=== PATIENT | male | born 1935 | race Hispanic/Latino ===

== ENCOUNTER 2020-12-09 11:42 | Observation (INO) | payer MEDICARE ==
[~2020-12-09] VITALS: Ht 172.7 cm; Wt 98.9 kg
[2020-12-09] VITALS (7 sets, daily range): BP systolic 110–123; BP diastolic 54–66
[2020-12-09] MEDS: 0.9%NACL 1000ML 1,000 ML IV SCH (13:05)
[2020-12-09 13:10] LABS: BASOPHILS % (AUTO) 0.9 % (0.0-5.0); EOSINOPHILS % (AUTO) 6.7 % (0.0-8.0); HEMATOCRIT 36.8 % (42-54); LYMPHOCYTES % (AUTO) 16.8 % (21.0-51.0); MEAN CORPUSCULAR HEMOGLOBIN 31.1 pg (27.0-33.0); MEAN CORPUSCULAR HGB CONC 32.9 g/dL (32.0-36.0); MEAN CORPUSCULAR VOLUME 94.6 fL (79-99); MONOCYTES % (AUTO) 9.1 % (3.0-13.0); NEUTROPHILS % (AUTO) 65.9 % (40.0-77.0); PLATELET COUNT (AUTO) 165 K/uL (130-400); RED BLOOD CELL COUNT(AUTO) 3.89 MIL/uL (4.50-6.20); WHITE BLOOD COUNT (AUTO) 4.6 K/uL (4.8-10.8)
[2020-12-09 13:20] LABS: CREATININE 1.6 mg/dL (0.5-1.5); POTASSIUM 4.6 mmol/L (3.5-5.1)
[2020-12-09 13:22] LABS: ALBUMIN 2.8 g/dL (3.5-5.0); BILIRUBIN,TOTAL 1.1 mg/dL (0.2-1.0); CRP QUANTITATIVE 20.1 mg/L (0.00-9.0); TOTAL PROTEIN, SERUM 7.2 g/dL (6.0-8.3)
[2020-12-09 13:38] LABS: B-TYPE NATRIURETIC PEPTIDE 51 pg/mL (0-100)
[2020-12-09 15:10] LABS: APPEARANCE,URINE Cloudy (CLEAR); BILIRUBIN,URINE Negative (NEGATIVE); COLOR,URINE Yellow (YELLOW); GLUCOSE, URINE (UA) Negative (NEGATIVE); KETONES,URINE Negative (NEGATIVE); LEUKOCYTE ESTERASE ,URINE Large (NEGATIVE); NITRATE,URINE Positive (NEGATIVE); OCCULT BLOOD,URINE Negative (NEGATIVE); PH,URINE 6.5 (5.0-8.0); PROTEIN,URINE Negative (NEGATIVE)
[2020-12-09 15:17] LABS: BACTERIA,URINE Few /HPF (None Seen); RBC,URINE 0-1 /HPF (0-1); WBC,URINE 26-50 /HPF (0-1)
[2020-12-09 15:18] LABS: SQUAMOUS EPITHELIAL CELL,UR Rare /HPF (0-2)
[2020-12-09] MEDS ORDERED: ACETAMINOPHEN 325 MG TAB PO PRN ×2 (15:30)
[2020-12-09] MEDS ORDERED: 0.9%NACL 1000ML 1,000 ML IV SCH (15:30)
[2020-12-09] MEDS ORDERED: LACTULOSE 20 GM/30 ML UDCUP PO PRN (15:30)
[2020-12-09] MEDS ORDERED: ONDANSETRON 4MG INJ IV PRN (15:30)
[2020-12-09] MEDS ORDERED: NITROGLYCERIN 0.4 MG SL TAB SL PRN (15:30)
[2020-12-09] MEDS ORDERED: CEFTRIAXONE 1G VIAL IVP ONE (15:30)
[2020-12-09] MEDS ORDERED: FAMOTIDINE 20MG VIAL IV SCH (15:45)
[2020-12-09 15:49] LABS: % IRON SATURATION 27.4 % (30-44)
[2020-12-09] MEDS ORDERED: 0.9%NACL 50ML 50 ML IV ONE (15:52)
[2020-12-09] MEDS ORDERED: PEG 3350/NA SULF,BICARB,CL/KCL 4000 ML SOLN PO SCH (17:10)
[2020-12-09] MEDS ORDERED: GLIP10TA3 PO (17:20)
[2020-12-09] MEDS ORDERED: PANT40GR PO (17:20)
[2020-12-09] MEDS ORDERED: FURO40TA5 PO (17:20)
[2020-12-09] MEDS ORDERED: INSLAN SQ (17:20)
[2020-12-09] MEDS ORDERED: PROP20TA7 PO (17:20)
[2020-12-09] MEDS ORDERED: CHOL200013 PO (17:20)
[2020-12-09] MEDS ORDERED: FERR-82 PO (17:20)
[2020-12-09] MEDS ORDERED: SPIR100T5 PO (17:20)
[2020-12-09] MEDS ORDERED: FISH12002 PO (17:20)
[2020-12-10] VITALS (16 sets, daily range): BP systolic 89–115; BP diastolic 44–89
[2020-12-10] MEDS: 0.9%NACL 1000ML 1,000 ML IV SCH ×2 (06:22→06:27)
[2020-12-10 08:01] LABS: BASOPHILS % (AUTO) 0.8 % (0.0-5.0); EOSINOPHILS % (AUTO) 4.7 % (0.0-8.0); HEMATOCRIT 34.5 % (42-54); LYMPHOCYTES % (AUTO) 11.6 % (21.0-51.0); MEAN CORPUSCULAR HEMOGLOBIN 31.4 pg (27.0-33.0); MEAN CORPUSCULAR HGB CONC 32.2 g/dL (32.0-36.0); MEAN CORPUSCULAR VOLUME 97.5 fL (79-99); MONOCYTES % (AUTO) 9.9 % (3.0-13.0); NEUTROPHILS % (AUTO) 72.4 % (40.0-77.0); PLATELET COUNT (AUTO) 125 K/uL (130-400); RED BLOOD CELL COUNT(AUTO) 3.54 MIL/uL (4.50-6.20); RED CELL DISTRIBUTION WIDTH 15.1 % (11.0-15.5); WHITE BLOOD COUNT (AUTO) 3.6 K/uL (4.8-10.8)
[2020-12-10 08:10] LABS: CREATININE 1.5 mg/dL (0.5-1.5); POTASSIUM 4.2 mmol/L (3.5-5.1)
[2020-12-10] MEDS ORDERED: 0.9%NACL 50ML IV SCH (08:30)
[2020-12-10] MEDS ORDERED: OCTREOTIDE ACETATE 1,250 MCG in 0.9% NACL 250ML 250 ML IV SCH (08:30)
[2020-12-10] MEDS ORDERED: ZOSYN 3.375GM+NS 50ML 50 ML IV SCH (08:30)
[2020-12-10] MEDS ORDERED: PIP/TAZ ZOSYN 3.375G 3.375 GM VIAL IVPB SCH (08:30)
[2020-12-10] MEDS ORDERED: SPIRONOLACTONE 25 MG TAB PO SCH (09:00)
[2020-12-10] MEDS ORDERED: LACTULOSE 20 GM/30 ML UDCUP PO SCH (09:00)
[2020-12-10] MEDS ORDERED: FUROSEMIDE 40 MG TABLET PO SCH (09:00)
[2020-12-10] MEDS ORDERED: PANTOPRAZOLE 40 MG/VIAL IVP SCH (09:00)
[2020-12-10] MEDS ORDERED: FERROUS SULFATE 325 MG TABLET.DR PO SCH (09:00)
[2020-12-10 09:01] LABS: INR 1.05 (0.85-1.15); PROTHROMBIN TIME 11.4 SEC (9.6-11.6)
[2020-12-10 09:02] LABS: PARTIAL THROMBOPLASTIN TIME 28.4 SEC (26.3-35.5)
[2020-12-10 09:46] LABS: CHOLESTEROL 157 mg/dL (<200); HDL CHOLESTEROL 41 mg/dL (29-71); LDL DIRECT 87 mg/dL (0-99); TRIGLYCERIDES 127 mg/dL (30-200)
[2020-12-10] MEDS ORDERED: PROPOFOL 10 MG/ML 20ML VIAL IV ONE (11:22)
[2020-12-10] MEDS ORDERED: INSULIN HUMULIN R 100 UNIT/ML 3ML SQ SCH (11:30)
[2020-12-10 13:32] LABS: HEMOGLOBIN A1C 7.5 % (4.0-6.0)
[2020-12-10] MEDS ORDERED: CEPH500B PO (14:14)
== END 2020-12-10 17:00 | disposition home or self-care (01) ==
LOC: EDH 11:42 → EDHIP 15:14 → 3DH 23:38
PROVIDERS: ADMIT Internal Medicine; ATTEND Internal Medicine
DX: D50.0 Iron deficiency anemia secondary to blood loss (chronic) (principal); Z20.822 Contact with and (suspected) exposure to COVID-19; K92.2 Gastrointestinal hemorrhage, unspecified; E11.9 Type 2 diabetes mellitus without complications; K70.31 Alcoholic cirrhosis of liver with ascites; I25.10 Atherosclerotic heart disease of native coronary artery without angina pectoris; I73.9 Peripheral vascular disease, unspecified; K46.9 Unspecified abdominal hernia without obstruction or gangrene; E78.5 Hyperlipidemia, unspecified; K64.8 Other hemorrhoids; K63.5 Polyp of colon; N39.0 Urinary tract infection, site not specified; Z79.4 Long term (current) use of insulin
CPT/HCPCS: 36415 ×2; 43235; 45378; 71045; 74176; 80048; 80053; 80061; 81001; 82140; 82270; 82948 ×4; 83036; 83540; 83550; 83880; 84145; 84484; 85025 ×2; 85610; 85651; 85730; 86140; 87077; 87088; 87186; 87635; 93005; 96361 ×2; 96374; 96375; 97039; 97161; 99285; A4215 ×2; A4221; A4222; A4223; A4606; A4620; A4657; G0378 ×24; G8979; G8980; G8981; G8982; G8983; J0696; J2354; J2704; J3490 ×2; J7030 ×4; J7050; J2543

== ENCOUNTER 2021-01-14 06:52 | Day surgery (SDC) | payer MEDICARE ==
[2021-01-14] VITALS (7 sets, daily range): BP systolic 107–136; BP diastolic 52–67
[~2021-01-14] VITALS: Ht 172.7 cm; Wt 97.5 kg
[~2021-01-14 06:52] MED LIST: 0.9%NACL 1000ML 1,000 ML IV ONE; CHOL200013 PO; FERR-82 PO; FISH12002 PO; FURO40TA5 PO; GLIP10TA3 PO; INSLAN SQ; PANT40GR PO; PROP20TA7 PO; SPIR100T5 PO
[2021-01-14] MEDS ORDERED: PROPOFOL 10 MG/ML 20ML VIAL IV ONE ×2 (08:51)
[2021-01-14] MEDS ORDERED: PHENYLEPHRINE HCL 10 MG/ML 1ML VIAL IV ONE (09:00)
[2021-01-14] MEDS ORDERED: 0.9%NACL 10ML VIAL ONE (09:00)
[2021-01-14] MEDS ORDERED: EPINEPHRINE PF 1MG AMP ONE (09:02)
== END 2021-01-14 10:15 | disposition home or self-care (01) ==
LOC: ENDO 06:52 → DAH 06:52 → ENDO 10:15
PROVIDERS: ATTEND Internal Medicine Gastroenterology
DX: K92.1 Melena (principal); D12.2 Benign neoplasm of ascending colon; K29.50 Unspecified chronic gastritis without bleeding; K31.89 Other diseases of stomach and duodenum; I85.00 Esophageal varices without bleeding; K55.20 Angiodysplasia of colon without hemorrhage; K64.1 Second degree hemorrhoids; K31.7 Polyp of stomach and duodenum; D50.9 Iron deficiency anemia, unspecified; K57.10 Diverticulosis of small intestine without perforation or abscess without bleeding; J45.909 Unspecified asthma, uncomplicated; I25.10 Atherosclerotic heart disease of native coronary artery without angina pectoris; K21.9 Gastro-esophageal reflux disease without esophagitis; E11.9 Type 2 diabetes mellitus without complications; Z90.49 Acquired absence of other specified parts of digestive tract; Z98.890 Other specified postprocedural states; Z79.899 Other long term (current) drug therapy; Z20.822 Contact with and (suspected) exposure to COVID-19
CPT/HCPCS: 43239; 43255; 45380; 45385; 82948; 87635; 88305; 88342; 93005; A4215 ×2; A4221; A4222; A4223; A4606; A4620; A4649; A4657 ×2; A4663; C9803; J0171; J2370; J2704; J7030

== ENCOUNTER 2021-03-05 13:40 | Emergency (ER) | payer MEDICARE ==
[~2021-03-05] VITALS: Ht 172.7 cm; Wt 95.3 kg
[~2021-03-05 13:40] MED LIST changes: -0.9%NACL 1000ML 1,000 ML IV ONE
[2021-03-05 15:22] LABS: BASOPHILS % (AUTO) 0.6 % (0.0-5.0); HEMATOCRIT 39.3 % (42-54); LYMPHOCYTES % (AUTO) 16.2 % (21.0-51.0); MEAN CORPUSCULAR HEMOGLOBIN 31.3 pg (27.0-33.0); MEAN CORPUSCULAR HGB CONC 34.1 g/dL (32.0-36.0); MEAN CORPUSCULAR VOLUME 91.8 fL (79-99); MONOCYTES % (AUTO) 8.7 % (3.0-13.0); NEUTROPHILS % (AUTO) 67.9 % (40.0-77.0); PLATELET COUNT (AUTO) 142 K/uL (130-400); RED BLOOD CELL COUNT(AUTO) 4.28 MIL/uL (4.50-6.20); RED CELL DISTRIBUTION WIDTH 13.2 % (11.0-15.5); WHITE BLOOD COUNT (AUTO) 4.7 K/uL (4.8-10.8)
[2021-03-05 15:36] LABS: INR 1.03 (0.85-1.15); PROTHROMBIN TIME 11.2 SEC (9.6-11.6)
[2021-03-05 15:38] LABS: PARTIAL THROMBOPLASTIN TIME 28.4 SEC (26.3-35.5)
[2021-03-05 15:52] LABS: CREATININE 1.7 mg/dL (0.5-1.5); POTASSIUM 5.1 mmol/L (3.5-5.1)
[2021-03-05 15:57] LABS: ALBUMIN 2.9 g/dL (3.5-5.0); BILIRUBIN,TOTAL 1.1 mg/dL (0.2-1.0); TOTAL PROTEIN, SERUM 6.9 g/dL (6.0-8.3)
[2021-03-05 16:46] VITALS: BP 110/57
== END 2021-03-05 17:02 | disposition home or self-care (01) ==
LOC: EDH 13:40
DX: K70.30 Alcoholic cirrhosis of liver without ascites (principal); K92.2 Gastrointestinal hemorrhage, unspecified; Z79.899 Other long term (current) drug therapy
CPT/HCPCS: 36415; 80053; 85025; 85610; 85730; 86850; 86900; 86901